=== PATIENT | female | born 1980 | race Hispanic/Latino ===

== ENCOUNTER 2019-01-01 15:38 | Emergency (ER) | payer OTHER ==
--- NOTE | 2019-01-01 16:00 | Event Note ---
ED Screening Note Date of service: 01/01/19 Time: 15:57 ED Screening Note: This is a 38 y.o. F. that presents to the ER with chest pain and SOB. She was discharged from [facility] this morning with dehydration. This initial assessment/diagnostic orders/clinical plan/treatment(s) is/are subject to change based on patients health status, clinical progression and re- assessment by fellow clinical providers in the ED. Further treatment and workup at subsequent clinical providers discretion. Patient/guardian urged not to elope from the ED as their condition may be serious if not clinically assessed and managed. Initial orders include: Labs, EKG, CXR
[2019-01-01 16:34] LABS: Basophils % (Auto) 0.5 % (0.0-1.8); Eosinophils # (Auto) 0.1 K/mm3 (0.0-0.4); Eosinophils % (Auto) 1.2 % (0.0-4.3); Hematocrit 34.2 % (30.3-42.9); Hemoglobin 12.1 gm/dl (10.1-14.3); Lymphocytes # (Auto) 1.2 K/mm3 (1.2-5.4); Mean Corpuscular HGB Conc 35 % (30-34); Mean Corpuscular Volume 90 fl (79-97); Monocytes # (Auto) 0.4 K/mm3 (0.0-0.8); Platelet Count 291 K/mm3 (140-440); Red Blood Count 3.81 M/mm3 (3.65-5.03); Red Cell Distribution Width 14.4 % (13.2-15.2)
--- NOTE | 2019-01-01 16:44 | XRay Report ---
EXAM: XR CHEST ROUTINE 2V HISTORY: Chest Pain TECHNIQUE: PA and lateral chest x-ray dated 01/01/2019 at 4:11 PM. COMPARISON: None available. FINDINGS: The heart size and mediastinum are within normal limits. The lung forrester and costophrenic angles are clear. There is no acute parenchymal infiltrate, pleural effusion, or pneumothorax seen. The visua lized bony structures are within normal limits. IMPRESSION: 1. No evidence for acute cardiopulmonary disease seen. This document is electronically signed by Yadira Eddy MD., January 01 2019 04:43:06 PM ET
[2019-01-01 17:06] LABS: BUN/Creatinine Ratio 8; Blood Urea Nitrogen 5 mg/dL (7-17); Calcium 8.9 mg/dL (8.4-10.2); Hemolysis Index 8
--- NOTE | 2019-01-01 20:35 | Emergency Department Report ---
ED Chest Pain HPI - General Chief Complaint: Chest Pain Stated Complaint: CHEST PAIN Time Seen by Provider: 01/01/19 15:56 Source: patient Mode of arrival: Ambulatory Limitations: No Limitations - History of Present Illness Initial Comments: Patient is a 38-year-old female who presents for left-sided chest pain that began 2 days ago. She describes the pain as a stabbing that lasts approximately 10-20 minutes. She has associated nausea. She states she has never had this before. She denies any emesis, diarrhea, shortness of breath, cough, radiation of the pain, acute lower extremity edema. She denies any cardiac history. She states her mother has stents. Past medical history of epilepsy, asthma, anemia. - Related Data Allergies Allergy/AdvReac Type Severity Reaction Status Date / Time cephalexin [From Keflex] Allergy Hives Verified 01/01/19 15:45 levetiracetam [From Keppra] Allergy Hives Verified 01/01/19 15:45 Penicillins Allergy Hives Verified 01/01/19 15:45 sulfamethoxazole Allergy Hives Verified 01/01/19 15:45 [From Bactrim] trazodone Allergy Hives Verified 01/01/19 15:45 trimethoprim [From Bactrim] Allergy Hives Verified 01/01/19 15:45 Heart Score - HEART Score History: Slightly suspicious EKG: Normal Age: < 45 Risk factors: 1-2 risk factors Troponin: < normal limit HEART Score: 1 ED Review of Systems ROS: Stated complaint: CHEST PAIN Other details as noted in HPI Comment: All other systems reviewed and negative ED Past Medical Hx - Past Medical History Hx Seizures: Yes Hx Asthma: Yes Additional medical history: AMENIA - Social History Smoking Status: Never Smoker ED Physical Exam - General Limitations: No Limitations General appearance: alert, in no apparent distress - Head Head exam: Present: atraumatic, normocephalic - Eye Eye exam: Present: normal appearance, PERRL - ENT ENT exam: Present: mucous membranes moist - Respiratory Respiratory exam: Present: normal lung sounds bilaterally, chest wall tenderness (reproducible left anterior chest wall tenderness to palpation ). Absent: respiratory distress, wheezes, rales, rhonchi, stridor, accessory muscle use, decreased breath sounds, prolonged expiratory - Cardiovascular Cardiovascular Exam: Present: regular rate, normal rhythm, normal heart sounds. Absent: systolic murmur, diastolic murmur, rubs, gallop - Neurological Exam Neurological exam: Present: alert, oriented X3 - Psychiatric Psychiatric exam: Present: normal affect, normal mood - Skin Skin exam: Present: warm, dry, intact ED Course Vital Signs 01/01/19 01/01/19 15:51 22:52 Temperature 98 F Pulse Rate 94 H 74 Respiratory 18 18 Rate Blood Pressure 107/69 Blood Pressure 123/69 [Right] O2 Sat by Pulse 97 100 Oximetry CARLOS score - Carlos Score Age > 65: (0) No Aspirin use within the Past 7 Days: (0) No 3 or more CAD Risk Factors: (0) No 2 or more Angina events in past 24 hrs: (0) No Known CAD with more than 50% Stenosis: (0) No Elevated Cardiac Markers: (0) No ST Deviation Greater than 0.5mm: (0) No CARLOS Score: 0 ED Medical Decision Making - Lab Data Result diagrams: 01/01/19 16:20 01/01/19 16:20 Lab Results 01/01/19 01/01/19 01/01/19 Range/Units 16:20 16:20 20:47 WBC 4.9 (4.5-11.0) K/mm3 RBC 3.81 (3.65-5.03) M/mm3 Hgb 12.1 (10.1-14.3) gm/dl Hct 34.2 (30.3-42.9) % MCV 90 (79-97) fl MCH 32 (28-32) pg MCHC 35 H (30-34) % RDW 14.4 (13.2-15.2) % Plt Count 291 (140-440) K/mm3 Lymph % (Auto) 25.0 (13.4-35.0) % [place] % (Auto) 8.0 H (0.0-7.3) % Eos % (Auto) 1.2 (0.0-4.3) % Baso % (Auto) 0.5 (0.0-1.8) % Lymph # 1.2 (1.2-5.4) K/mm3 [place] # 0.4 (0.0-0.8) K/mm3 Eos # 0.1 (0.0-0.4) K/mm3 Baso # 0.0 (0.0-0.1) K/mm3 Seg Neutrophils % 65.3 (40.0-70.0) % Seg Neutrophils # 3.2 (1.8-7.7) K/mm3 Sodium 139 (137-145) mmol/L Potassium 3.6 (3.6-5.0) mmol/L Chloride 103.7 (98-107) mmol/L Carbon Dioxide 22 (22-30) mmol/L Anion Gap 17 mmol/L BUN 5 L (7-17) mg/dL Creatinine 0.6 L (0.7-1.2) mg/dL Estimated GFR > 60 ml/min BUN/Creatinine Ratio 8 % Glucose 90 (65-100) mg/dL Calcium 8.9 (8.4-10.2) mg/dL Troponin T < 0.010 < 0.010 (0.00-0.029) ng/mL Vital Signs 01/01/19 01/01/19 15:51 22:52 Temperature 98 F Pulse Rate 94 H 74 Respiratory 18 18 Rate Blood Pressure 107/69 Blood Pressure 123/69 [Right] O2 Sat by Pulse 97 100 Oximetry - EKG Data EKG shows normal: sinus rhythm, axis, intervals, QRS complexes (low voltage, precordial leads), ST-T waves Rate: normal - Radiology Data Radiology results: report reviewed EXAM: XR CHEST ROUTINE 2V HISTORY: Chest Pain TECHNIQUE: PA and lateral chest x-ray dated 01/01/2019 at 4:11 PM. COMPARISON: None available. FINDINGS: The heart size and mediastinum are within normal limits. The lung forrester and costophrenic angles are clear. There is no acute parenchymal infiltrate, pleural effusion, or pneumothorax seen. The visualized bony structures are within normal limits. IMPRESSION: 1. No evidence for acute cardiopulmonary disease seen. This document is electronically signed by Doyle Johnston MD., January 01 2019 04:43:06 PM ET Transcribed By: ASM Dictated By: DOYLE JOHNSTON Electronically Authenticated By: DOYLE JOHNSTON Signed Date/Time: 01/01/19 8840 - Medical Decision Making Patient is a 38-year-old female who presents for left-sided chest pain that began 2 days ago. She describes the pain as a stabbing that lasts approximately 10-20 minutes. She has associated nausea. She states she has never had this before. She denies any emesis, diarrhea, shortness of breath, cough, radiation of the pain, acute lower extremity edema. She denies any cardiac history. She states her mother has stents. Past medical history of epilepsy, asthma, anemia. on exam left anterior chest wall TTP which reproduces her pain per pt. labs WNL. trop negative x 2. EKG WNL. CXR with no acute process. VSS. can be ruled out for PE based on PERC criteria. CARLOS and heart score are both negative. advised pt to follow up with PCP in the next 2-3 days. given list of community resources. return to the emergency room for any new or worsening symptoms. spoke with Dr. Antelmo Alves regarding pt and results, agrees with plan and d/c home to follow up with PCP. - Differential Diagnosis ACS, PE, GERD, Costochrondritis Critical care attestation.: If time is entered above; I have spent that time in minutes in the direct care of this critically ill patient, excluding procedure time. ED Disposition Clinical Impression: Chest pain Qualifiers: Chest pain type: unspecified Qualified Code(s): R07.9 - Chest pain, unspecified Disposition: DC-01 TO HOME OR SELFCARE Is pt being admited?: No Does the pt Need Aspirin: No Condition: Stable Instructions: Chest Pain (ED) Additional Instructions: please follow up with a primary care doctor in the next 2-3 days. given list of community resources. return to the emergency room for any new or worsening symptoms. Referrals: VIDA DICKINSON MD [Primary Care Provider] - 2-3 Days [facility] [Outside] - 2-3 Days [facility] [Outside] - 2-3 Days Time of Disposition: 22:36 Print Language: ZAMBIAN
[2019-01-01 22:52] VITALS: BP 123/69
== END 2019-01-01 22:53 | disposition home or self-care (01) ==
LOC: ED 15:38
DX: R07.89 Other chest pain (principal); J45.909 Unspecified asthma, uncomplicated; Z86.2 Personal history of diseases of the blood and blood-forming organs and certain disorders involving the immune mechanism; Z88.0 Allergy status to penicillin; Z88.1 Allergy status to other antibiotic agents; Z88.2 Allergy status to sulfonamides
CPT/HCPCS: 36415; 71046; 80048; 84484; 85025; 93005; 93010

== ENCOUNTER 2019-01-02 00:28 | Emergency (ER) | payer OTHER ==
[2019-01-02] MEDS ORDERED: NACL 0.9% 1000 ML 2,000 ML IV ONE (02:51)
[2019-01-02] MEDS ORDERED: ZOFRAN IV ONE (02:51)
[2019-01-02] MEDS ORDERED: PEPCID IV ONE (02:51)
[2019-01-02 03:43] LABS: Alanine Aminotransferase 11 units/L (7-56); Albumin 3.7 g/dL (3.9-5); BUN/Creatinine Ratio 8; Blood Urea Nitrogen 5 mg/dL (7-17); Calcium 8.9 mg/dL (8.4-10.2); Hemolysis Index 7
--- NOTE | 2019-01-02 05:03 | Emergency Department Report ---
ED General Adult HPI - General Chief complaint: Chest Pain Stated complaint: WEAKNESS THROWING UP SHARP PAIN IN CHEST Time Seen by Provider: 01/02/19 02:16 Source: patient, EMS (ems notes not available at time of chart dictation), RN notes reviewed, old records reviewed Mode of arrival: Ambulatory Limitations: No Limitations - History of Present Illness Initial comments: Past medical history: Seizure, anemia, asthma, history of bilateral tubal ligati on This is a 38-year-old female. The patient is not known to this provider previously. She does not have a primary care doctor. She does not take oral contraceptives and she denies DVT, pulmonary embolism risk factors. Patient was seen earlier on yesterday for chest pain. Patient had a thorough and complete an extensive workup for chest pain. The patient was discharged. The patient reports that while she was walking and after she was discharged, she develops nausea. This was associated with left lower quadrant pain. The patient reports 9 episodes of nonbloody, nonbilious emesis, prior to arrival. She has not vomited since being in the emergency room. She denies chest pain to this provider. The patient denies headache, neck pain, chest pain, shortness of breath, urinary symptoms. She endorses nausea, she complains of crampy left lower quadrant pain. The pain is reportedly constant, does not radiate anywhere, and reportedly does not have exacerbating or relieving factors. -: Gradual Location: abdomen Radiation: non-radiation Severity scale (0 -10): 6 Quality: aching Improves with: other Worsens with: other - Related Data Previous Rx's Medication Instructions Recorded Last Taken Type Acetaminophen [Non-Aspirin Extra 500 mg PO Q6HR PRN #30 tablet 01/02/19 Unknown Rx Strength] Dicyclomine [Bentyl] 10 mg PO QID PRN #20 capsule 01/02/19 Unknown Rx Famotidine [Pepcid] 20 mg PO BID #10 tablet 01/02/19 Unknown Rx Ondansetron [Zofran Odt] 4 mg PO Q8HR PRN #20 tab.rapdis 01/02/19 Unknown Rx Allergies Allergy/AdvReac Type Severity Reaction Status Date / Time cephalexin [From Keflex] Allergy Hives Verified 01/01/19 15:45 levetiracetam [From Keppra] Allergy Hives Verified 01/01/19 15:45 Penicillins Allergy Hives Verified 01/01/19 15:45 sulfamethoxazole Allergy Hives Verified 01/01/19 15:45 [From Bactrim] trazodone Allergy Hives Verified 01/01/19 15:45 trimethoprim [From Bactrim] Allergy Hives Verified 01/01/19 15:45 ED Review of Systems ROS: Stated complaint: WEAKNESS THROWING UP SHARP PAIN IN CHEST Other details as noted in HPI Constitutional: malaise. denies: fever Eyes: denies: eye discharge ENT: denies: congestion Respiratory: denies: wheezing Cardiovascular: denies: chest pain Gastrointestinal: abdominal pain, nausea, vomiting Genitourinary: denies: dysuria Musculoskeletal: myalgia. denies: arthralgia Skin: denies: lesions Neurological: weakness Hematological/Lymphatic: denies: easy bleeding ED Past Medical Hx - Past Medical History Previous Medical History?: Yes Hx Seizures: Yes Hx Asthma: Yes Additional medical history: AMENIA - Surgical History Past Surgical History?: No - Social History Smoking Status: Former Smoker Substance Use Type: None - Medications Home Medications: Home Medications Medication Instructions Recorded Confirmed Last Taken Type Acetaminophen [Non-Aspirin Extra 500 mg PO Q6HR PRN #30 tablet 01/02/19 Unknown Rx Strength] Dicyclomine [Bentyl] 10 mg PO QID PRN #20 capsule 01/02/19 Unknown Rx Famotidine [Pepcid] 20 mg PO BID #10 tablet 01/02/19 Unknown Rx Ondansetron [Zofran Odt] 4 mg PO Q8HR PRN #20 tab.rapdis 01/02/19 Unknown Rx ED Physical Exam - General Limitations: No Limitations General appearance: alert, in no apparent distress - Head Head exam: Present: atraumatic, normocephalic - Eye Eye exam: Present: normal appearance, EOMI. Absent: nystagmus - ENT ENT exam: Present: normal exam, normal orophraynx, mucous membranes moist, normal external ear exam - Neck Neck exam: Present: normal inspection, full ROM. Absent: tenderness, me ningismus - Respiratory Respiratory exam: Present: normal lung sounds bilaterally. Absent: respiratory distress - Cardiovascular Cardiovascular Exam: Present: regular rate, normal rhythm, normal heart sounds. Absent: bradycardia, tachycardia, irregular rhythm, systolic murmur, diastolic murmur, rubs, gallop - GI/Abdominal GI/Abdominal exam: Present: soft, tenderness, other (minimal tenderness to left lower quadrant palpation. There is no rebound, guarding or peritoneal signs.). Absent: distended, guarding, rebound, rigid, pulsatile mass - Extremities Exam Extremities exam: Present: normal inspection, full ROM, other (2+ pulses noted in the bilateral upper, lower extremities. Compartments soft. No long bony tenderness. The pelvis is stable.). Absent: pedal edema, joint swelling, calf tenderness - Back Exam Back exam: Present: normal inspection, full ROM. Absent: tenderness, CVA tender ness (R), CVA tenderness (L), paraspinal tenderness, vertebral tenderness - Neurological Exam Neurological exam: Present: alert, normal gait, other (Extraocular movements intact. Tongue midline. No facial droop. Facial sensation intact to light touch in the V1, V2, V3 distribution bilaterally. 5 and 5 strength in 4 extremities.. Sensation is intact to light touch in 4 extremities.). Absent: motor sensory deficit - Psychiatric Psychiatric exam: Present: normal affect, normal mood - Skin Skin exam: Present: warm, dry, intact, normal color. Absent: rash ED Course Vital Signs 01/02/19 01/02/19 01/02/19 00:32 03:42 03:44 Temperature 98.2 F Pulse Rate 106 H Respiratory 18 11 L Rate Blood Pressure 113/72 Blood Pressure [Left] O2 Sat by Pulse 94 100 100 Oximetry 01/02/19 01/02/19 01/02/19 03:45 03:46 04:08 Temperature 98.0 F Pulse Rate 72 70 79 Respiratory 11 L 17 12 Rate Blood Pressure 108/61 108/61 Blood Pressure 108/61 [Left] O2 Sat by Pulse 100 Oximetry 01/02/19 01/02/19 01/02/19 04:15 04:30 05:10 Temperature Pulse Rate 77 74 89 Respiratory 15 17 Rate Blood Pressure 112/64 109/61 108/61 Blood Pressure [Left] O2 Sat by Pulse 100 100 Oximetry 01/02/19 01/02/19 01/02/19 05:15 05:30 05:45 Temperature Pulse Rate 82 73 62 Respiratory 18 16 14 Rate Blood Pressure 117/77 121/70 122/68 Blood Pressure [Left] O2 Sat by Pulse 100 100 100 Oximetry 01/02/19 01/02/19 06:00 06:15 Temperature Pulse Rate 77 77 Respiratory 15 20 Rate Blood Pressure 115/75 124/62 Blood Pressure [Left] O2 Sat by Pulse 98 98 Oximetry - Reevaluation(s) Reevaluation #1: 01/02/19 05:01 Differential diagnoses, including not limited to: Constipation, malingering, colitis, diverticulitis, obstruction, urinary tract infection Assessment and plan: 38-year-old female, recently seen in this department for chest pain, appropriately risk stratified and discharged, now with reported prehospital vomiting. The patient is sleeping in her stretcher and she is not vomiting. The patient is resting comfortably, and does not appear to be acute distress. The patient has been observed for a repeat visit for almost 5 hours, without active vomiting, and without clinical decompensation. Her tachycardia has resolved. Suspect malingering/secondary gain. Objective laboratory testing thus far unremarkable. Low risk by heart score, low risk by well's criteria, EKG unchanged from prior. CT scan of the abdomen and pelvis ordered, interpretation pending, urinalysis pending. Reevaluation #2: 01/02/19 06:10 No active vomiting after hours of emergency room in this emergency room. CT scan report reviewed and appreciated. I do not clinically suspect pancreatitis. Urinalysis reviewed and appreciated. I do not suspect urinary tract infection. May be asymptomatic bacteriuria. Patient does not appear to have an emergent medical condition at this time. We will discharge the patient ED Medical Decision Making - Lab Data Result diagrams: 01/02/19 03:16 Vital Signs 01/02/19 01/02/19 01/02/19 00:32 03:44 03:46 Temperature 98.2 F 98.0 F Pulse Rate 106 H 70 Respiratory 18 11 L 17 Rate Blood Pressure 113/72 Blood Pressure 108/61 [Left] O2 Sat by Pulse 94 100 100 Oximetry CBC performed within the past 48 hours. Therefore, no additional CBC indicated. Vital Signs 01/02/19 01/02/19 01/02/19 00:32 03:44 03:46 Temperature 98.2 F 98.0 F Pulse Rate 106 H 70 Respiratory 18 11 L 17 Rate Blood Pressure 113/72 Blood Pressure 108/61 [Left] O2 Sat by Pulse 94 100 100 Oximetry Lab Results 01/02/19 01/02/19 01/02/19 Range/Units 03:16 03:16 03:16 Sodium 142 (137-145) mmol/L Potassium 3.6 (3.6-5.0) mmol/L Chloride 105.7 (98-107) mmol/L Carbon Dioxide 25 (22-30) mmol/L Anion Gap 15 mmol/L BUN 5 L (7-17) mg/dL Creatinine 0.6 L (0.7-1.2) mg/dL Estimated GFR > 60 ml/min BUN/Creatinine Ratio 8 % Glucose 86 (65-100) mg/dL Calcium 8.9 (8.4-10.2) mg/dL Total Bilirubin 0.50 (0.1-1.2) mg/dL AST 20 (5-40) units/L ALT 11 (7-56) units/L Alkaline Phosphatase 52 (35-129) units/L Troponin T < 0.010 (0.00-0.029) ng/mL Total Protein 5.5 L (6.3-8.2) g/dL Albumin 3.7 L (3.9-5) g/dL Albumin/Globulin Ratio 2.1 % Lipase 8 L (13-60) units/L HCG, Quant < 2 (0-4) mIU/mL Salicylates (2.8-20.0) mg/dL Acetaminophen (10.0-30.0) ug/mL Plasma/Serum Alcohol (0-0.07) % 01/02/19 01/02/19 01/02/19 Range/Units 03:16 03:16 03:16 Sodium (137-145) mmol/L Potassium (3.6-5.0) mmol/L Chloride (98-107) mmol/L Carbon Dioxide (22-30) mmol/L Anion Gap mmol/L BUN (7-17) mg/dL Creatinine (0.7-1.2) mg/dL Estimated GFR ml/min BUN/Creatinine Ratio % Glucose (65-100) mg/dL Calcium (8.4-10.2) mg/dL Total Bilirubin (0.1-1.2) mg/dL AST (5-40) units/L ALT (7-56) units/L Alkaline Phosphatase (35-129) units/L Troponin T (0.00-0.029) ng/mL Total Protein (6.3-8.2) g/dL Albumin (3.9-5) g/dL Albumin/Globulin Ratio % Lipase (13-60) units/L HCG, Quant (0-4) mIU/mL Salicylates < 0.3 L (2.8-20.0) mg/dL Acetaminophen < 5.0 L (10.0-30.0) ug/mL Plasma/Serum Alcohol < 0.01 (0-0.07) % - EKG Data -: EKG Interpreted by Ar EKG shows normal: sinus rhythm Rate: normal - EKG Data When compared to previous EKG there are: previous EKG unavailable 01/02/19 05:03 This is a normal sinus rhythm, 80 beats for minute, normal axis, QTC within normal limits, there is low voltage, this EKG is not consistent with ST elevation myocardial infarction. This EKG is unchanged from prior EKG. - Radiology Data Radiology results: pending, report reviewed, image reviewed Referring Physician: ARACELI HAN Patient Name: BO STRONG Date of : 1980 Sex: Female Report Date: 2019-01-02 Report Status: Finalized [facility] [address] [place] [address] Cat Scan Report Signed Patient: BO STRONG MR#: [id number] 7 : 1980 Acct:[id number] Age/Sex: 38 / F ADM Date: 01/02/19 Loc: ED Attending Dr: Ordering Physician: ARACELI HAN MD Date of Service: 01/02/19 Procedure(s): CT abdomen pelvis w con Accession Number(s): [id number] cc: ARACELI HAN MD PROCEDURE: CT ABDOMEN PELVIS W CON TECHNIQUE: Computerized axial tomography of the abdomen and pelvis was performed after the administration of IV iodinated nonionic contrast. CT DOSE LENGTH PRODUCT: 3445.7 mGycm HISTORY: LLQ PIN HX N/V COMPARISONS: None . FINDINGS: Partially visualized intrathoracic contents are unremarkable. Distended gallbladder without adjacent edema. No calcified galls tones. Heterogeneous enhancement of the pancreas without peripancreatic stranding or edema. The liver spleen and adrenal glands are unremarkable. Kidneys show no worrisome lesions, hydronephrosis, or calculi. Urinary bladder is unremarkable. Anteverted uterus. Pelvic phleboliths. No free fluid in the pelvis. Small and large bowel are normal in caliber. Appendix is normal. No free air, free fluid, or lymphadenopathy identified. Aorta is normal in course and caliber. Superficial soft tissues are unremarkable. No acute or aggressive appearing skeletal findings. IMPRESSION: Distended gallbladder without calcified gallstones. Consider ultrasound follow-up as warranted. Heterogeneous enhancement of the pancreas without adjacent stranding or edema may be due to chronic or acute pancreatitis. Correlation with history and as warranted serum lipase is requested. This document is electronically signed by Araceli Putnam MD., January 02 2019 05:49:05 AM ET Transcribed By: MB Dictated By: ARACELI WEBSTER MD Electronically Authenticated By: ARACELI PUTNAM MD Signed Date/Time: 01/02/19 0580 Critical care attestation.: If time is entered above; I have spent that time in minutes in the direct care of this critically ill patient, excluding procedure time. ED Disposition Clinical Impression: History of abdominal pain, History of nausea and vomiting Disposition: - TO HOME OR SELFCARE Is pt being admited?: No Does the pt Need Aspirin: No Condition: Stable Additional Instructions: Take the pain medication, nausea medication as needed/directed. Cultures were sent today, and results will be available in the next 3-5 days. Please have your primary care doctor contact the medical records department to obtain culture results. Do not take metformin medication for the next 2 days, if patient takes his medication. Follow up with a primary care doctor within the next 7-10 days. Return to the emergency room right away with new, worse or different symptoms not present on the initial emergency room evaluation. Prescriptions: Dicyclomine [Bentyl] 10 mg PO QID PRN #20 capsule PRN Reason: Pain Acetaminophen [Non-Aspirin Extra Strength] 500 mg PO Q6HR PRN #30 tablet PRN Reason: Pain , Severe (7-10) Famotidine [Pepcid] 20 mg PO BID #10 tablet Ondansetron [Zofran Odt] 4 mg PO Q8HR PRN #20 tab.rapdis PRN Reason: Nausea Referrals: VIDA DICKINSON MD [Primary Care Provider] - 3-5 Days
[2019-01-02 05:45] LABS: Bacteria,Urine 1+ /HPF (Negative); Bilirubin,Urine NEG (Negative); Blood,Urine NEG (Negative); Color,Urine Yellow (Yellow); Mucus,Urine 2+ /HPF; Protein,Urine <15 mg/dL mg/dL (Negative)
[2019-01-02 05:48] LABS: Amphetamine Screen,Urine PRESUMPTIVE NEGATIVE; Benzodiazepines Screen,Urine PRESUMPTIVE NEGATIVE; Cannabinoid Screen,Urine PRESUMPTIVE NEGATIVE; Cocaine Screen,Urine PRESUMPTIVE NEGATIVE; Methadone Screen,Urine PRESUMPTIVE NEGATIVE; Opiate Screen,Urine PRESUMPTIVE NEGATIVE
--- NOTE | 2019-01-02 05:51 | Cat Scan Report ---
PROCEDURE: CT ABDOMEN PELVIS W CON TECHNIQUE: Computerized axial tomography of the abdomen and pelvis was performed after the administr ation of IV iodinated nonionic contrast. CT DOSE LENGTH PRODUCT: 3445.7 mGycm HISTORY: LLQ PIN HX N/V COMPARISONS: None . FINDINGS: Partially visualized intrathoracic contents are unremarkable. Distended gallbladder without adjacent edema. No calcified gallstones. Heterogeneous enhancement of t he pancreas without peripancreatic stranding or edema. The liver spleen and adrenal glands are unrema rkable. Kidneys show no worrisome lesions, hydronephrosis, or calculi. Urinary bladder is unremarkable. Antev erted uterus. Pelvic phleboliths. No free fluid in the pelvis. Small and large bowel are normal in caliber. Appendix is normal. No free air, free fluid, or lymphade nopathy identified. Aorta is normal in course and caliber. Superficial soft tissues are unremarkable. No acute or aggressive appearing skeletal findings. IMPRESSION: Distended gallbladder without calcified gallstones. Consider ultrasound follow-up as warranted. Heterogeneous enhancement of the pancreas without adjacent stranding or edema may be due to chronic o r acute pancreatitis. Correlation with history and as warranted serum lipase is requested. This document is electronically signed by Ho Majano MD., January 02 2019 05:49:05 AM ET
[2019-01-02 06:34] VITALS: BP 124/62
== END 2019-01-02 06:34 | disposition home or self-care (01) ==
LOC: ED 00:28
DX: R10.32 Left lower quadrant pain (principal); R11.2 Nausea with vomiting, unspecified; J45.909 Unspecified asthma, uncomplicated; Z87.891 Personal history of nicotine dependence; Z86.2 Personal history of diseases of the blood and blood-forming organs and certain disorders involving the immune mechanism; Z88.0 Allergy status to penicillin; Z88.6 Allergy status to analgesic agent; Z88.2 Allergy status to sulfonamides
CPT/HCPCS: 36415; 74177; 80053; 80307; 81001; 83690; 84484; 84702; 93005; 93010; 96374; 96375; 99284; G0480; J2405; J7030; Q9967; 80320

== ENCOUNTER 2020-06-25 12:55 | Emergency (ER) | payer SELFPAY ==
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
[2020-06-25 18:30] VITALS: BP 131/82
== END 2020-06-25 18:30 | disposition home or self-care (01) ==
LOC: EEVIPCON 12:55 → ED 12:55
DX: S00.512A Abrasion of oral cavity, initial encounter (principal); R68.84 Jaw pain; J45.909 Unspecified asthma, uncomplicated; D64.9 Anemia, unspecified; Z88.0 Allergy status to penicillin; Z88.8 Allergy status to other drugs, medicaments and biological substances; Z79.899 Other long term (current) drug therapy; Z86.69 Personal history of other diseases of the nervous system and sense organs; Z87.891 Personal history of nicotine dependence; Z88.2 Allergy status to sulfonamides; Y04.8XXA Assault by other bodily force, initial encounter; Y93.89 Activity, other specified; Y92.89 Other specified places as the place of occurrence of the external cause; Y99.8 Other external cause status
CPT/HCPCS: 70486